=== PATIENT | male | born 1950 | race Caucasian/White ===

== ENCOUNTER 2021-03-18 11:37 | Emergency (ER) | payer MEDICARE, OTHER, SELFPAY ==
[2021-03-18 11:39] VITALS: BP 155/76; PULSE 74; RESP 16; TEMP 36.2; O2SAT 96; BMI 37.3
--- NOTE | 2021-03-18 11:51 | RAD_ITS ---
HISTORY: pain and injury. TECHNIQUE: XR Hip Unilateral with Pelvis when performed; 2-3 Views. # of images incl. paperwork: 3. COMPARISON: None. FINDINGS: OSSEOUS STRUCTURES: No acute displaced fracture identified. Note that overlapping bowel shadows may obscure detail. Mineralization unremarkable. ALIGNMENT/JOINTS: No dislocation. Mild degenerative changes of the hips. SOFT TISSUES: Vascular calcification. RAD/HIP, UNI W/ Pelvis 2-3 Views IMPRESSION: No acute fracture or dislocation identified in the right hip. at 1251 Reported and signed by: Anni Lew MD Electronically Signed: Anni Lew MD at 12:50 EDT Tel , Service support ,
--- NOTE | 2021-03-18 11:51 | EX.ED.DYSGE1 ---
HPI History of Present Illness Chief Complaint: Lower Extremity Injury Informant: patient Narrative Narrative: 70-year-old male states that 6 days ago he [place] He went to get out of the bed and had a severe pain in his right buttock that has persisted. States walking from the car into the triage area he needed to stop and tie his pants. He bent over to stretch and proceeded into the triage area. Upon leaving the triage area he no longer has any pain. He denied any radicular symptoms. No loss of bowel or bladder control. No muscle weakness or sensory changes. [facility] Medical History (Updated 03/18/21 @ 12:[address] Armando Carcamo DO) Osteopenia Allergy/AdvReac Type Severity Reaction Status Date / Time No Known Allergies Allergy Verified 03/18/21 11:39 Surgical History (Updated 03/18/21 @ 11:[address] Armando Carcamo DO) H/O discectomy Social History (Updated 03/18/21 @ 11:[address] Armando Carcamo DO) substance use type: does not use ROS ROS ED Constitutional Constitutional ED: Denies chills or weight loss Eyes Eyes: Denies change in vision or diplopia ENT ENT ED: Denies ear pain, rhinorrhea or sore throat Cardiovascular Cardiovascular: Denies chest pain, orthopnea, palpitations or racing heartbeat Respiratory/Chest Respiratory/Chest: Denies cough, dyspnea or orthopnea Gastrointestinal Gastrointestinal: Denies abdominal pain, diarrhea, nausea or vomiting Genitourinary Genitourinary ED: Denies dysuria, hematuria or urinary frequency Musculoskeletal Musculoskeletal: Reports other Details: History of present illness ; Denies arthralgias or myalgias Integumentary Denies abscess or rash Neurologic Neurologic: Denies headache(s) or weakness Psychiatric Psychiatric: Denies anxiety, depression, suicidal ideation or suicidal thoughts Endocrine Endocrinology: Denies polydipsia, polyphagia or polyuria Allergic/Immunologic Allergic/Immunologic ED: Denies mouth swelling, tongue swelling or urticaria EXAM Physical Exam Const Vital Signs: 03/18/21 11:39 Temperature 97.1 F L Temperature Source Temporal Pulse Rate 74 Respiratory Rate 16 Blood Pressure 155/76 H Blood Pressure Mean 102 Pulse Ox 96 Oxygen Delivery Method Room Air Positive well nourished and well developed General Appearance ED: well developed HEENT Reports normocephalic, head/scalp atraumatic and moist mucous membranes Eyes PERRL and EOMs intact bilaterally Neck no lymphadenopathy, supple and no JVD Resp normal respiratory effort and clear to auscultation bilaterally Cardio regular rate, regular rhythm and no murmurs GI normal to inspection, nondistended, normoactive bowel sounds and non-tender Palpation: soft Back/Spine no CVA tenderness and normal ROM Extremity normal to inspection Extremity Narrative: Patient has no pain upon palpation. No pain with AB duction and a deduction of the hip. No pain with piriformis stretch. No pain over the SI joint. General Extremety ED: Negative for edema General Extremity: Negative for edema Neuro oriented x3 and CN's II-XII intact bilaterally Sensorium / Orientation: alert Motor Exam: strength 5/5 throughout Psych mental status grossly normal Mood & Affect: Negative for depressed or tearful Skin no rashes or lesions noted and no wounds MDM MDM MDM Narrative Medical decision making narrative: My interpretation of the plain films of the right hip there is no acute fracture. Arthritic changes noted. Patient symptoms have apparently resolved. At this point I do wonder if this was more of a somatic dysfunction of the SI joint. Versus muscular strain. As the patient's pain frequent I recommend conservative treatment at home. Discharge Plan Triage Chief Complaint: Lower Extremity Injury ED Provider: Armando Carcamo Dx/Rx/DC Orders Clinical Impression: Acute pain of right hip Instructions: Anatomy of the Sacroiliac Joint Primary Care Provider: NOT,DEFINED Referrals: NOT,DEFINED [Primary Care Provider] - Activity Restrictions/Additional Instructions: Tylenol or Motrin for pain. Heating pad if pain returns. Gentle stretching. Follow-up with your doctor when you return home. Disposition Disposition: Home, self care
== END 2021-03-18 12:42 | disposition home or self-care (01) ==
PROVIDERS: Emergency Provider Emergency Medicine
DX: M25.551 Pain in right hip (principal); M85.80 Other specified disorders of bone density and structure, unspecified site
CPT/HCPCS: 73502; 99282

== ENCOUNTER → 2023-11-20 | Outpatient (CLI) | payer MEDICARE, OTHER, SELFPAY ==
[2023-11-20 14:35] LABS: PSA,Total- Diagnostic 1.84 ng/mL (0.0-4.0)
== END | disposition home or self-care (01) ==
LOC: LAB 13:26
PROVIDERS: Referring Provider Nurse Practitioner; Visit Provider Nurse Practitioner
DX: R97.20 Elevated prostate specific antigen [PSA] (principal)
CPT/HCPCS: 36415; 84153

== ENCOUNTER → 2025-06-29 | Outpatient (CLI) | payer MEDICARE, OTHER, SELFPAY ==
[2025-06-29 15:47] LABS: Hematocrit 38.0 % (40-54); Hemoglobin 12.0 g/dL (13.0-16.5); Immature Granulocytes Count 0.030 X10^3/uL (0.0-0.0); Mean Corp Hgb Conc 31.6 g/dL (32-36); Mean Corpuscular Volume 80.7 fL (80-94); Mean Platelet Vol. 10.9 fl (6.2-12.0); NRBC Flagged by Analyzer 0 % (0-5); Platelet Count 274 K/mm3 (150-450); RBC Distribution Width CV 13.8 % (11.6-14.6); RBC Distribution Width SD 40.6 fl (35.1-43.9); Red Blood Count 4.71 M/mm3 (4.6-6.2); White Blood Count 6.7 K/mm3 (4.4-11.0)
[2025-06-29 15:58] LABS: Anion Gap 10 (5-15); BUN 20 mg/dL (4-19); BUN/Creat Ratio 21.4 RATIO (10-20); Calcium,Total 9.4 mg/dL (7.6-11.0); Carbon Dioxide 27.0 mmol/L (21.0-32.0); Chloride 103 mmol/L (98-108); Glucose 144 mg/dL (70-99); Potassium 4.8 mmol/L (3.3-5.1)
== END | disposition home or self-care (01) ==
PROVIDERS: PCP Internal Medicine Infectious Disease; Referring Provider Internal Medicine Cardiovascular Disease; Visit Provider Internal Medicine Cardiovascular Disease
DX: I25.10 Atherosclerotic heart disease of native coronary artery without angina pectoris (principal); I25.5 Ischemic cardiomyopathy
CPT/HCPCS: 36415; 80048; 85025

== ENCOUNTER 2025-07-13 06:43 | Day surgery (SDC) | payer MEDICARE, OTHER, SELFPAY ==
[2025-07-12 11:27] VITALS: BMI 30.4
--- NOTE | 2025-07-13 13:13 | CL.D_ITS ---
Patient Name: CONNIE HEARD Study Date: 07/13/2025 Performing: Joe Godwin MD Ht: 72 inches 182.88 cm : 1950 Wt: 224.3 lbs 101.6 kg Age: 74 Gender: male BSA: 2.24 PROCEDURE(S) PERFORMED [id number])[facility] CLINICAL PROFILE AND INDICATIONS Indications: Suspected CAD Heart Failure: None Stress/Imaging Date: 04/21/25 CAD Presentations: No Sxs, no angina. CONCLUSIONS Coronary artery disease with mild to moderate disease noted in the left anterior descending artery, the previously stented right coronary artery is noted to be free of any stenosis. There is mild to moderate distal LAD disease and diagonal disease present. RECOMMENDATIONS Medical therapy DESCRIPTION OF PROCEDURE The patient arrived to the procedure lab. The risks and benefits of the procedure as well as a full description of our services here and current unavailability of surgical backup were fully explained to the patient and/or their significant other prior to the catheterization. The Timeout was completed, verifying the correct patient and procedure. The patient's procedural site was prepped and draped in the usual fashion. Local anesthetic was given subcutaneously to right radial region with Lidocaine 2%. Using a modified Seldinger technique, arterial access was obtained via the right radial artery, a 6Fr sheath was inserted. Left Coronary Artery selective angiography was performed in multiple views using a 5 Fr. 4.0 [place] catheter. Right Coronary Artery selective angiography was then performed in multiple views using a 5 Fr. AR MOD catheter.The arterial sheath was pulled and a TR Band was applied for hemostasis. 8cc air CORONARY ANGIOGRAPHY DOMINANCE: Right Dominant LEFT HEART ASSESSMENT Left Ventricular Ejection Fraction: by Echo 43 % Depressed Left Ventricular systolic function LEFT MAIN: Angiographically normal LEFT ANTERIOR DESCENDING ARTERY: Left anterior descending artery is a medium size vessel. There are 3 diagonal branches with a small first diagonal branch. A second diagonal branch with 50% stenosis at the diagonal branch which bifurcates and has an 80% stenosis in the inferior branch. The distal vessel has mild diffuse distal disease of 50% CIRCUMFLEX ARTERY: PROX CIRC: 60 % Stenosis RIGHT CORONARY ARTERY: Previously placed stent has an instent 20 % restenosis RT PLV: Mild luminal irregularities RT PDA: Proximal - Mild luminal irregularities less than 30% COMPLICATIONS No Complications PROCEDURE MEDICATIONS Fentanyl 50 mcg IV Versed 1 mg IV Versed 1 mg IV Oxygen: 2 L/min via nasal cannula Aspirin (325mg) 1 Tabs PO @ 07/13/2025 07:30:45 Heparin given IA 07/13/2025 07:57:02 Verapamil 2.5mg, Ntg 100mcgs, 3000 units of Heparin given IA 07/13/2025 07:57:02 SUMMARY OF HEMODYNAMIC DATA Time AIR REST ECG 07:43:58 AO 147/63 (96) SA 08:01:55 Signed By Joe Godwin MD On 07/13/2025 13:12:10 Joe Godwin MD
== END 2025-07-13 10:20 | disposition home or self-care (01) ==
PROVIDERS: PCP Internal Medicine Infectious Disease; Referring Provider Internal Medicine Cardiovascular Disease; Visit Provider Internal Medicine Cardiovascular Disease
DX: I25.10 Atherosclerotic heart disease of native coronary artery without angina pectoris (principal); I48.91 Unspecified atrial fibrillation; E11.9 Type 2 diabetes mellitus without complications; Z79.4 Long term (current) use of insulin; I25.5 Ischemic cardiomyopathy; Z95.5 Presence of coronary angioplasty implant and graft; Z95.0 Presence of cardiac pacemaker; I10 Essential (primary) hypertension; E78.5 Hyperlipidemia, unspecified; Z79.899 Other long term (current) drug therapy; Z79.02 Long term (current) use of antithrombotics/antiplatelets; Z79.85 Long-term (current) use of injectable non-insulin antidiabetic drugs; Z79.84 Long term (current) use of oral hypoglycemic drugs; Z79.82 Long term (current) use of aspirin; K21.9 Gastro-esophageal reflux disease without esophagitis; Z87.891 Personal history of nicotine dependence; Z95.810 Presence of automatic (implantable) cardiac defibrillator
CPT/HCPCS: 93454; 99152; 99153; Q9967; C1769; C1894